=== PATIENT | female | born 2000 | race Caucasian/White ===

== ENCOUNTER 2022-04-03 13:32 | Outpatient (NON) | payer OTHER, SELFPAY | END 2022-04-03 13:33 | disposition home or self-care (01) | LOC: ANHGOSHLAB 13:34 | PROVIDERS: PCP Family Medicine; Visit Provider Family Medicine | DX: Z00.00 Encounter for general adult medical examination without abnormal findings (principal) | CPT/HCPCS: 87491; 87591 ==